=== PATIENT | male | born 1945 | race Hispanic/Latino ===

== ENCOUNTER 2018-06-14 19:16 | Emergency (ER) | payer OTHER ==
[2018-06-14] MEDS ORDERED: METHYLPREDNISOLONE SOD SUCC 125MG/2ML VIAL ONE (20:10)
[2018-06-14] MEDS ORDERED: IPRATROPIUM/ALBUTEROL SULFATE 3 ML SOLUTION IH ONE (20:17)
[2018-06-14 20:24] LABS: BASOPHILS % (AUTO) 0.7 % (0.0-5.0); EOSINOPHILS % (AUTO) 0.7 % (0.0-8.0); LYMPHOCYTES % (AUTO) 9.4 % (21.0-51.0); MEAN CORPUSCULAR HEMOGLOBIN 32.5 pg (27.0-33.0); MEAN CORPUSCULAR HGB CONC 33.4 g/dL (32.0-36.0); MEAN CORPUSCULAR VOLUME 97.5 fL (79-99); MONOCYTES % (AUTO) 6.2 % (3.0-13.0); PLATELET COUNT (AUTO) 159 K/uL (130-400); RED BLOOD CELL COUNT(AUTO) 2.97 MIL/uL (4.50-6.20); RED CELL DISTRIBUTION WIDTH 13.2 % (11.0-15.5); WHITE BLOOD COUNT (AUTO) 4.7 K/uL (4.8-10.8)
[2018-06-14 20:34] LABS: CREATININE 6.3 mg/dL (0.5-1.5); POTASSIUM 4.5 mmol/L (3.5-5.1)
[2018-06-14 20:38] LABS: ALBUMIN 3.4 g/dL (3.5-5.0); BILIRUBIN,TOTAL 0.4 mg/dL (0.2-1.0); TOTAL PROTEIN, SERUM 7.3 g/dL (6.0-8.3)
[2018-06-14 20:45] LABS: APPEARANCE,URINE CLOUDY (CLEAR); BILIRUBIN,URINE NEGATIVE (NEGATIVE); COLOR,URINE YELLOW (YELLOW); GLUCOSE, URINE (UA) NEGATIVE (NEGATIVE); KETONES,URINE NEGATIVE (NEGATIVE); LEUKOCYTE ESTERASE ,URINE TRACE (NEGATIVE); NITRATE,URINE NEGATIVE (NEGATIVE); OCCULT BLOOD,URINE TRACE-LYSED (NEGATIVE); PROTEIN,URINE 100 mg/dL (NEGATIVE); UROBILINOGEN,URINE 0.2 mg/dL (0.2-1.0)
[2018-06-14 21:01] LABS: BACTERIA,URINE Moderate /HPF (None Seen); WBC,URINE 26-50 /HPF (0-1)
[2018-06-14 21:02] LABS: SQUAMOUS EPITHELIAL CELL,UR Rare /HPF (0-2)
[2018-06-14 21:18] LABS: B-TYPE NATRIURETIC PEPTIDE 1740 pg/mL (0-100)
[2018-07-04] MEDS ORDERED: FOLI0.8T2 PO (18:34)
[2018-07-04] MEDS ORDERED: LEVO112T7 PO (18:34)
[2018-07-04] MEDS ORDERED: CLON0.1T PO (18:34)
[2018-07-04] MEDS ORDERED: CALC667C10 PO (18:34)
[2018-07-05] MEDS ORDERED: ACET650T9 PO (00:26)
[2018-07-05] MEDS ORDERED: CHOL100018 PO (00:26)
[2018-07-05] MEDS ORDERED: SIMV20TA6 PO (00:26)
[2018-07-05] MEDS ORDERED: SERT25TA5 PO (00:26)
[2018-07-05] MEDS ORDERED: SODI650T PO (00:26)
[2018-07-05] MEDS ORDERED: PATI16.8 PO (00:26)
[2018-07-05] MEDS ORDERED: METO-409 PO (00:26)
[2018-07-05] MEDS ORDERED: TORS20TA4 PO (00:26)
[2018-07-05] MEDS ORDERED: HYDR-4154 PO (00:26)
[2018-07-05] MEDS ORDERED: FERR325T22 PO (00:26)
== END 2018-06-14 21:40 | disposition home or self-care (01) ==
LOC: EDH 19:16
DX: J45.901 Unspecified asthma with (acute) exacerbation (principal); B34.9 Viral infection, unspecified; I10 Essential (primary) hypertension; E11.9 Type 2 diabetes mellitus without complications; E07.9 Disorder of thyroid, unspecified; Z98.890 Other specified postprocedural states
CPT/HCPCS: 36415; 71045; 80053; 81001; 83880; 84484; 85025; 93005; 94640; 96374; 99284; J2930

== ENCOUNTER 2018-07-04 11:08 | Inpatient (IN) | payer OTHER | END 2018-07-07 19:21 | disposition home or self-care (01) | LOC: EDH 11:08 → EDHIP 13:00 → 3CH 16:27 | PROC: 031C09F Bypass Left Radial Artery to Lower Arm Vein with Autologous Venous Tissue, Open Approach (ICD-10-PCS; principal; 2018-07-06 16:41) | DX: I12.0 Hypertensive chronic kidney disease with stage 5 chronic kidney disease or end stage renal disease (principal); N18.6 End stage renal disease; E87.70 Fluid overload, unspecified; D64.9 Anemia, unspecified; E88.09 Other disorders of plasma-protein metabolism, not elsewhere classified; E11.21 Type 2 diabetes mellitus with diabetic nephropathy; E11.22 Type 2 diabetes mellitus with diabetic chronic kidney disease; E11.51 Type 2 diabetes mellitus with diabetic peripheral angiopathy without gangrene; E03.9 Hypothyroidism, unspecified; E11.319 Type 2 diabetes mellitus with unspecified diabetic retinopathy without macular edema ==

== ENCOUNTER 2018-10-31 06:32 | Day surgery (SDC) | payer OTHER ==
[2018-10-26 13:17] LABS: BASOPHILS % (AUTO) 0.7 % (0.0-5.0); EOSINOPHILS % (AUTO) 1.8 % (0.0-8.0); HEMATOCRIT 37.6 % (42-54); LYMPHOCYTES % (AUTO) 20.2 % (21.0-51.0); MEAN CORPUSCULAR HEMOGLOBIN 31.9 pg (27.0-33.0); MEAN CORPUSCULAR HGB CONC 33.8 g/dL (32.0-36.0); MEAN CORPUSCULAR VOLUME 94.5 fL (79-99); NEUTROPHILS % (AUTO) 69.3 % (40.0-77.0); PLATELET COUNT (AUTO) 200 K/uL (130-400); RED BLOOD CELL COUNT(AUTO) 3.98 MIL/uL (4.50-6.20); RED CELL DISTRIBUTION WIDTH 15.5 % (11.0-15.5); WHITE BLOOD COUNT (AUTO) 5.6 K/uL (4.8-10.8)
[2018-10-26 13:19] LABS: CREATININE 3.6 mg/dL (0.5-1.5); POTASSIUM 5.5 mmol/L (3.5-5.1)
[2018-10-26 13:24] LABS: HEMOGLOBIN A1C 5.6 % (4.0-6.0); INR 0.99 (0.85-1.15); PARTIAL THROMBOPLASTIN TIME 28.6 SEC (26.3-35.5); PROTHROMBIN TIME 10.4 SEC (9.6-11.6)
--- NOTE | 2018-10-26 13:43 | NUR ---
S[klaudia with [facility]ONES/Dr. Girard Nurse pt had high blood pressure pt is to follow up with primary Dr. evans Escoto is doing procedure. Addendum: 10/30/18 at 1819 by JIA BADILLO RN RN NURSING: REPORTED ABNORMAL POTASSIUM OF 5.5 TO VELIA CUEVA RN/ DR. ESCOTO, NEW ORDERS TO RE-DRAW POTASSIUM IN AM IN HOLDING AREA.
[2018-10-26 13:59] VITALS: BP 205/183
[2018-10-31] VITALS (16 sets, daily range): BP systolic 148–185; BP diastolic 56–119
[~2018-10-31] VITALS: Ht 165.1 cm; Wt 54.7 kg
[~2018-10-31 06:32] MED LIST: ACET650T9 PO; CALC667C10 PO; CEFUROXIME SODIUM 1.5 GM VIAL IVP SCH; FOLI0.8T2 PO; LEVO112T7 PO; METO-409 PO; SERT25TA5 PO; SIMV20TA6 PO
[2018-10-31] MEDS ORDERED: LACTATED RINGERS 1000ML 1,000 ML IV ONE (07:18)
[2018-10-31] MEDS ORDERED: BACITRACIN 50,000 UNIT VIAL ONE (07:32)
[2018-10-31] MEDS ORDERED: SODIUM CHLORIDE 0.9% 1000ML 1,000 ML IV ONE (07:50)
[2018-10-31 08:17] LABS: CREATININE 3.3 mg/dL (0.5-1.5); POTASSIUM 4.7 mmol/L (3.5-5.1)
[2018-10-31] MEDS ORDERED: SUCCINYLCHOLINE 200MG/10ML SYR ONE (08:24)
[2018-10-31] MEDS ORDERED: LIDOCAINE PF 2% 5ML ABBOJECT ONE ×2 (08:24→08:26)
[2018-10-31] MEDS ORDERED: DEXAMETHASONE SOD PHOSPHATE 10MG/ML 1ML VIAL ONE (08:24)
[2018-10-31] MEDS ORDERED: NEOSTIGMINE 5MG/5ML SYR IV ONE (08:25)
[2018-10-31] MEDS ORDERED: PROPOFOL 10 MG/ML 20ML VIAL IV ONE (08:25)
[2018-10-31] MEDS ORDERED: GLYCOPYRROLATE 1 MG/5 ML SYRINGE ONE (08:25)
[2018-10-31] MEDS ORDERED: ROCURONIUM 10MG/1ML SYR 10 MG/ML ML ONE ×2 (08:25→09:10)
[2018-10-31] MEDS ORDERED: FENTANYL CITRATE PF 50 MCG/1 ML 2ML VIAL ONE (08:26)
[2018-10-31] MEDS ORDERED: EPHEDRINE SULFATE 50 MG/ML AMPULE ONE (08:41)
[2018-10-31] MEDS ORDERED: PAPAVERINE HCL 30 MG/ML 2ML VIAL ONE (08:42)
[2018-10-31] MEDS ORDERED: PHENYLEPHRINE HCL 10 MG/ML 1ML VIAL IV ONE (08:44)
[2018-10-31] MEDS ORDERED: BACITRACIN 28.4 GM OINT TP ONE (08:44)
--- NOTE | 2018-10-31 11:40 | NUR ---
post op received pt from pacu, s/p redo left radiocephalic av fistula, palpable bruit and thrill. small dressing to left arm no bleeding noted. small bruising noted to site as per PACU NURSE Chidi Escoto assessed it and said it was ok. pt awake and alert . pt awake and alert, denied any pain or discomforts. plan of care disucuss with pt/ daughter
--- NOTE | 2018-10-31 12:10 | NUR ---
dc dc instructions given to pts daughter with rx, instructed to f/u with Dr. Escoto, to remove dressing tomorrow evening and may shower and get incision wet . intructed on infection control. s&s of infections to report. patient av fistula with palpable / ausculated bruit and thrill. instructed on limb alert. both daughter /pt verbalized understanding.
--- NOTE | 2018-10-31 12:20 | NUR ---
dc pt dc home via w[facility], no distress noted, denied any pain or discomfort. right sbc permacath in place with dressing dry and intact, left arm dressing dry and intact, pt accompanied by maricruz
== END 2018-10-31 12:20 | disposition home or self-care (01) ==
LOC: DAH 06:32 → EDSTATUS 12:18 → DAH 12:20
PROVIDERS: ATTEND Thoracic Surgery (Cardiothoracic Vascular Surgery)
DX: T82.868A Thrombosis due to vascular prosthetic devices, implants and grafts, initial encounter (principal); Y83.8 Other surgical procedures as the cause of abnormal reaction of the patient, or of later complication, without mention of misadventure at the time of the procedure; E11.22 Type 2 diabetes mellitus with diabetic chronic kidney disease; I12.0 Hypertensive chronic kidney disease with stage 5 chronic kidney disease or end stage renal disease; N18.6 End stage renal disease; Z99.2 Dependence on renal dialysis; E78.5 Hyperlipidemia, unspecified; E03.9 Hypothyroidism, unspecified; Z98.890 Other specified postprocedural states; Z89.512 Acquired absence of left leg below knee
CPT/HCPCS: 36415 ×2; 36832; 71046; 80048 ×2; 82948; 83036; 85025; 85610; 85730; 93005; A4215; A4221; A4222; A4223; A4649 ×2; A4663; A4930; A5120; A6207; A6223; C1713 ×2; C1887; G0168; J0330; J0697; J1100; J1644; J2001 ×2; J2370; J2704; J2710; J3010; J3490 ×2; J7030 ×2; J7040; J7120; J2440

== ENCOUNTER → 2019-05-08 | Outpatient (CLI) | payer OTHER ==
[~2019-05-08] MED LIST changes: -CEFUROXIME SODIUM 1.5 GM VIAL IVP SCH; +SIMV-43 PO; -SIMV20TA6 PO
== END | disposition home or self-care (01) ==
LOC: OIH 12:56
PROVIDERS: ATTEND Family Medicine
DX: M19.072 Primary osteoarthritis, left ankle and foot (principal); M20.42 Other hammer toe(s) (acquired), left foot; M86.172 Other acute osteomyelitis, left ankle and foot; L98.499 Non-pressure chronic ulcer of skin of other sites with unspecified severity
CPT/HCPCS: 73630

== ENCOUNTER 2020-08-19 09:33 | Day surgery (SDC) | payer OTHER ==
[~2020-08-19] VITALS: Ht 160 cm; Wt 56.4 kg
[2020-08-19] VITALS (16 sets, daily range): BP systolic 140–198; BP diastolic 56–94
[~2020-08-19 09:33] MED LIST changes: +SERT-438 PO; -SERT25TA5 PO
[2020-08-19] MEDS ORDERED: CEFAZOLIN SODIUM 1 GM VIAL IVP SCH (10:30)
[2020-08-19 10:33] LABS: BASOPHILS % (AUTO) 0.4 % (0.0-5.0); EOSINOPHILS % (AUTO) 2.6 % (0.0-8.0); HEMATOCRIT 33.8 % (42-54); LYMPHOCYTES % (AUTO) 26.6 % (21.0-51.0); MEAN CORPUSCULAR HEMOGLOBIN 31.3 pg (27.0-33.0); MEAN CORPUSCULAR HGB CONC 32.5 g/dL (32.0-36.0); MONOCYTES % (AUTO) 9.2 % (3.0-13.0); PLATELET COUNT (AUTO) 134 K/uL (130-400); RED BLOOD CELL COUNT(AUTO) 3.52 MIL/uL (4.50-6.20); RED CELL DISTRIBUTION WIDTH 12.8 % (11.0-15.5)
[2020-08-19] MEDS ORDERED: NACL 0.9% 1000ML 1,000 ML IV ONE (10:45)
[2020-08-19 10:50] LABS: CREATININE 4.4 mg/dL (0.5-1.5); POTASSIUM 4.7 mmol/L (3.5-5.1); PROTHROMBIN TIME 10.9 SEC (9.6-11.6)
[2020-08-19 10:55] LABS: ALBUMIN 3.7 g/dL (3.5-5.0); BILIRUBIN,TOTAL 0.5 mg/dL (0.2-1.0); TOTAL PROTEIN, SERUM 7.4 g/dL (6.0-8.3)
[2020-08-19] MEDS ORDERED: CLOP75TA32 PO (11:16)
[2020-08-19] MEDS ORDERED: LOSA50TA64 PO (11:16)
[2020-08-19] MEDS ORDERED: FOLI0.8T22 PO (11:16)
[2020-08-19] MEDS ORDERED: FOLI1 PO (11:16)
[2020-08-19] MEDS ORDERED: METO-409 PO (11:16)
[2020-08-19] MEDS ORDERED: ATOR10TA69 PO (11:16)
[2020-08-19] MEDS ORDERED: ROPIVACAINE 0.5% 5MG/ML 30ML IJ ONE (14:13)
[2020-08-19] MEDS ORDERED: KETAMINE 50MG/ML SYRINGE 50 MG/ML DISP.SYRIN IV ONE (14:13)
[2020-08-19] MEDS ORDERED: PROPOFOL 1000 MG/100 ML 100 ML IV ONE (14:13)
[2020-08-19] MEDS ORDERED: CEFAZOLIN SODIUM 1 GM VIAL ONE (14:18)
[2020-08-19] MEDS ORDERED: HEPARIN 10,000 UNIT/10ML (1,000 UNIT/ML) VIAL ONE (14:18)
[2020-08-19] MEDS ORDERED: PAPAVERINE HCL 30 MG/ML 2ML VIAL ONE (14:18)
[2020-08-19] MEDS ORDERED: GLYCOPYRROLATE 1 MG/5 ML SYRINGE ONE (15:00)
[2020-08-19] MEDS ORDERED: LIDOCAINE 2%-EPI 1:200,000 20 ML VIAL IJ ONE (15:30)
[2020-08-19] MEDS ORDERED: PROTAMINE SULFATE 10 MG/ML 25ML VIAL IV ONE (15:51)
[2020-08-19] MEDS ORDERED: HYDRALAZINE 20MG/ML VIAL ONE (16:29)
== END 2020-08-19 17:45 | disposition home or self-care (01) ==
LOC: DAH 09:33
PROVIDERS: ATTEND Thoracic Surgery (Cardiothoracic Vascular Surgery)
DX: E11.22 Type 2 diabetes mellitus with diabetic chronic kidney disease (principal); Z20.822 Contact with and (suspected) exposure to COVID-19; T82.590A Other mechanical complication of surgically created arteriovenous fistula, initial encounter; I12.0 Hypertensive chronic kidney disease with stage 5 chronic kidney disease or end stage renal disease; N18.6 End stage renal disease; E03.9 Hypothyroidism, unspecified; E78.5 Hyperlipidemia, unspecified; I25.2 Old myocardial infarction; Z99.2 Dependence on renal dialysis; Z98.890 Other specified postprocedural states; Z79.01 Long term (current) use of anticoagulants; Z79.890 Hormone replacement therapy; Y83.8 Other surgical procedures as the cause of abnormal reaction of the patient, or of later complication, without mention of misadventure at the time of the procedure
CPT/HCPCS: 36415; 36830; 64415; 71045; 76942; 80053; 82948 ×3; 85025; 85610; 85730; 86850; 86900; 86901; 87635; 93005; A4452; A4649; A4930; A6207; A6446; C1713 ×2; C1768; G0168; J0360; J0690 ×2; J1644 ×2; J2440; J2704; J2720; J2795; J3490 ×3; J7030 ×2